=== PATIENT | male | born 1960 | race Caucasian/White ===

== ENCOUNTER 2017-04-02 11:48 | Emergency (ER) | payer OTHER ==
[~2017-04-02] VITALS: Ht 177.8 cm; Wt 72.6 kg
[2017-04-02] MEDS ORDERED: ZOLPIDEM TARTRATE 10 MG TABLET (12:00)
[2017-04-02] MEDS ORDERED: ALPRAZOLAM 0.5 MG TABLET (12:00)
[2017-04-02] MEDS ORDERED: DULOXETINE HCL DR 60 MG CAP (12:00)
[2017-04-02] MEDS ORDERED: ODEFSEY (12:00)
--- NOTE | 2017-04-02 12:04 | NUR ---
at bedside examining patient.
[2017-04-02] MEDS ORDERED: LIDOCAINE 1%-EPI 1:100,000 20 ML VIAL TP ONE (12:15)
[2017-04-02] MEDS ORDERED: TDAP DIPH,PERTUSS,TET VAC/PF 0.5 ML DISP.SYRIN IM ONE ×2 (12:15→12:44)
[2017-04-02] MEDS ORDERED: LIDOCAINE HCL 1% 20 ML VIAL ONE (12:46)
[2017-04-02] MEDS ORDERED: NEOMY/BACITRA/POLYMYXIN B OINT UD PACKET TP ONE ×2 (13:30→13:42)
[2017-04-02 13:31] VITALS: BP 115/76
--- NOTE | 2017-04-02 13:31 | NUR ---
Patient discharged to home in stable conditon. Written and verbal after care instructions given. Patient verbalizes understanding of instructions.
--- NOTE | 2017-04-02 13:35 | NUR ---
WOUND CLEAN. NO BLEEDING. SUTURES INTACT
--- NOTE | 2017-04-02 13:38 | NUR ---
Maye hernandes in [facility] - 04/02/17 at 1340 by [id number] WOUND CLEAN. NO BLEEDING. SUTURES INTACT.
== END 2017-04-02 13:35 | disposition home or self-care (01) ==
LOC: ER 11:48
DX: S01.81XA Laceration without foreign body of other part of head, initial encounter (principal); Z90.49 Acquired absence of other specified parts of digestive tract; W01.0XXA Fall on same level from slipping, tripping and stumbling without subsequent striking against object, initial encounter; Y92.89 Other specified places as the place of occurrence of the external cause; Y93.89 Activity, other specified; Y99.8 Other external cause status
CPT/HCPCS: 90715; A4217; A4663; J3490